=== PATIENT | male | born 1965 | race Caucasian/White ===

== ENCOUNTER 2018-12-30 11:56 | Emergency (ER) | payer SELFPAY ==
[~2018-12-30] VITALS: Ht 185.4 cm; Wt 111.0 kg
[2018-12-30] MEDS ORDERED: ZIPRASIDONE 20 MG INJ IM ONE ×2 (13:00→13:16)
[2018-12-30 13:05] LABS: BASOPHILS # (AUTO) 0.04 x10^3/uL (0-0.1); BASOPHILS % (AUTO) 0 % (0-1); EOSINOPHILS % (AUTO) 1 % (1-7); LYMPHOCYTES # (AUTO) 3.17 x10^3/uL (1-3.4); LYMPHOCYTES % (AUTO) 31 % (22-44); MD NO; MEAN CORPUSCULAR HEMOGLOBIN 28.8 pg (27.5-34.5); MEAN CORPUSCULAR HGB CONC 32.2 g/dL (33.2-36.2); MEAN CORPUSCULAR VOLUME 89.4 fL (81-97); MEAN PLATELET VOLUME 8.5 fL (7.4-10.4); MONOCYTES # (AUTO) 0.72 x10^3/uL (0.2-0.8); MONOCYTES % (AUTO) 7 % (2-9); NEUTROPHILS # (AUTO) 6.23 x10^3/uL (1.8-6.8); NEUTROPHILS % (AUTO) 61 % (42-75); PLATELET COUNT 232 x10^3/uL (130-400); RED BLOOD COUNT 4.66 x10^6/uL (4.38-5.82); RED CELL DISTRIBUTION WIDTH 13.1 % (9.4-14.8)
[2018-12-30 13:13] LABS: ALANINE AMINOTRANSFERASE 58 U/L (12-78); ALBUMIN 3.5 g/dL (3.4-5.0); ANION GAP 8 mmol/L (5-15); CALCIUM 8.7 mg/dL (8.5-10.1); CHLORIDE 108 mmol/L (98-107); CREATININE 0.89 mg/dL (0.7-1.3)
[2018-12-30 13:16] LABS: ALKALINE PHOSPHATASE 58 U/L (45-117); BILIRUBIN,TOTAL 1.1 mg/dL (0.2-1.0); TOTAL PROTEIN 7.5 g/dL (6.4-8.2)
[2018-12-30 13:19] LABS: SALICYLATE LEVEL < 1.7 mg/dL (2.8-20.0)
[2018-12-30] MEDS ORDERED: METO25TA35 PO (13:29)
[2018-12-30] MEDS ORDERED: SUMA100T3 PO (13:29)
--- NOTE | 2018-12-30 14:10 | NUR ---
REPORT RECEIVED, CARE ASSUMED. PT MOSTLY SLEEPING, URINAL AT BEDSIDE FOR URINE COLLECTION.
--- NOTE | 2018-12-30 14:59 | NUR ---
PT CONT SLEEPING, AROUSES TO NAME. PT AWARE OF URINE SPECIMAN NEEDED. ASKING FOR WATER. PO FLUIDS AT BEDSIDE. AWAITING FURTHER DISPOSITION.
[2018-12-30 16:00] VITALS: BP 137/89
--- NOTE | 2018-12-30 16:00 | NUR ---
PT DOZING INTERMITTENTLY, AROUSES EASILY. TAKING PO FLUIDS WITHOUT DIFFICULTY. SR PER MONITOR. PT AWARE OF URINE SPECIMAN NEEDED. "I'M TRYING TO GET YOU THE URINE SPECIMAN, I'M JUST SO DRY" CONT TO MONITOR.
--- NOTE | 2018-12-30 16:57 | NUR ---
PT AWARE OF BEING DISCHARGED. PT PROVIDED WITH INFORMAITON ON SUBSTANCE ABUSE AND HOMELESS SHELTERS IN THE AREA. PT NOT HAPPY WITH DC. "NO ONE CARES, MY HANDS ARE SWOLLEN" NO SWELLING NOTED. PT PROVIDED WITH DC PAPERS. NO IV TO DC.
== END 2018-12-30 17:00 | disposition home or self-care (01) ==
LOC: ED 14:18
DX: F15.250 Other stimulant dependence with stimulant-induced psychotic disorder with delusions (principal); Z91.14 Patient's other noncompliance with medication regimen; Z72.9 Problem related to lifestyle, unspecified; Z75.9 Unspecified problem related to medical facilities and other health care; Z63.8 Other specified problems related to primary support group
CPT/HCPCS: 36415; 80053; 80307; 85025; 96372; 99283; J3486